=== PATIENT | female | born 1995 | race Caucasian/White ===

== ENCOUNTER → 2018-04-22 | Outpatient (CLI) | payer BC ==
[~2018-04-22] MED LIST: CIPRO250 MG PO; K-TAB20 MEQ PO; KEFLEX500 M1 PO; LAMICTAL1 TAB PO; LOMOTIL 0.025 M1 TA1 PO; MACROBID100 M1 PO; METADATE CD40 MG PO; MOTRIN800 MG PO; NAPROSYN500 MG PO; TOPAMAX200 MG PO; ZOFRAN ODT4 MG SL
== END | disposition home or self-care (01) ==
LOC: RAD 14:03
DX: K59.00 Constipation, unspecified (principal)

== ENCOUNTER 2018-05-06 12:34 | Emergency (ER) | payer BC ==
[~2018-05-06 12:34] MED LIST changes: -KEFLEX500 M1 PO; -NAPROSYN500 MG PO
[2018-05-06] MEDS ORDERED: KEFLEX500 M1 PO (12:40)
[2018-05-06] MEDS ORDERED: NAPROSYN500 MG PO (12:41)
== END 2018-05-06 14:24 | disposition home or self-care (01) ==
LOC: ED 12:34
DX: S61.216A Laceration without foreign body of right little finger without damage to nail, initial encounter (principal); R03.0 Elevated blood-pressure reading, without diagnosis of hypertension; W45.8XXA Other foreign body or object entering through skin, initial encounter; Y93.89 Activity, other specified; Y92.89 Other specified places as the place of occurrence of the external cause; Y99.8 Other external cause status

== ENCOUNTER 2020-06-03 13:39 | Emergency (ER) | payer BC ==
[~2020-06-03] VITALS: Ht 170.1 cm; Wt 70.3 kg
[~2020-06-03 13:39] MED LIST changes: +KEFLEX500 M1 PO; +NAPROSYN500 MG PO
[2020-06-03] MEDS ORDERED: PREDNISONE20 M1 PO ×2 (16:44→17:38)
[2020-06-03] MEDS ORDERED: ROBAXIN-750750 MG PO ×2 (16:44→17:38)
== END 2020-06-03 17:29 | disposition home or self-care (01) ==
LOC: ED 13:39
DX: M54.12 Radiculopathy, cervical region (principal); M77.8 Other enthesopathies, not elsewhere classified; Z79.899 Other long term (current) drug therapy; Z98.890 Other specified postprocedural states

== ENCOUNTER 2020-07-13 01:32 | Emergency (ER) | payer BC ==
[~2020-07-13] VITALS: Ht 170.1 cm; Wt 70.3 kg
[~2020-07-13 01:32] MED LIST changes: +PREDNISONE20 M1 PO; +ROBAXIN-750750 MG PO
== END 2020-07-13 05:14 | disposition short-term general hospital (02) ==
LOC: ED 01:32
DX: S61.217A Laceration without foreign body of left little finger without damage to nail, initial encounter (principal); Z88.0 Allergy status to penicillin; Z79.899 Other long term (current) drug therapy; Z98.890 Other specified postprocedural states; W01.0XXA Fall on same level from slipping, tripping and stumbling without subsequent striking against object, initial encounter; Y93.89 Activity, other specified; Y92.89 Other specified places as the place of occurrence of the external cause; Y99.8 Other external cause status